=== PATIENT | female | born 1950 | race Caucasian/White ===

== ENCOUNTER 2023-09-09 09:25 | Inpatient (IN) | payer OTHER, BC ==
[2023-09-09 11:45] LABS: VENOUS BASE EXCESS -4.8 mmol/L (-2-2); VENOUS O2 SATURATION 51.1 % (70-80); VENOUS PCO2 39.7 mmHg (38-52); VENOUS PH 7.334 (7.310-7.410)
[2023-09-09 11:58] LABS: BASO % 0.3 % (0-2.0); EOS % 0.8 % (0-4.5); HEMATOCRIT 34.3 % (32.4-45.2); HEMOGLOBIN 10.6 GM/dL (10.7-15.3); LYMPH % 4.6 % (8-40); MCH 30.2 pg (25.7-33.7); MCHC 30.9 g/dl (32.0-36.0); MEAN CELL VOLUME 97.8 fl (80-96); MEAN PLT VOLUME 10.3 fl (7.5-11.1); MONO % 8.9 % (3.8-10.2); NEUT % 85.4 % (42.8-82.8); PLATELET COUNT 109 10^3/uL (134-434); RDW 19.4 % (11.6-15.6); WHITE BLOOD COUNT 18.3 K/mm3 (4.0-10.0)
[2023-09-09 12:05] LABS: CHLORIDE 103 mmol/L (98-107); SODIUM 133 mmol/L (136-145)
[2023-09-09 12:07] LABS: CALCIUM 9.7 mg/dL (8.5-10.1)
[2023-09-09 12:08] LABS: ALBUMIN 2.2 g/dl (3.4-5.0); ANION GAP 11 mmol/L (4-13); BLOOD UREA NITROGEN 41.8 mg/dL (7-18); CO2 20 mmol/L (21-32); GLUCOSE,RANDOM 222 mg/dL (74-106)
[2023-09-09 12:11] LABS: CREATININE 4.6 mg/dL (0.55-1.3); SGOT/AST 106 U/L (15-37); SGPT/ALT 96 U/L (13-61)
[2023-09-09 12:13] LABS: BILIRUBIN,TOTAL 0.9 mg/dL (0.2-1); TOT PROT 5.6 g/dl (6.4-8.2)
[2023-09-09 12:14] LABS: ALK PHOS 380 U/L (45-117)
[2023-09-09 12:18] LABS: N-TERMINAL BNP > 35000.0 pg/ml (5-125)
[2023-09-09] MEDS ORDERED: ALPRAZolam 0.25 MG TABLET PO PRN (16:33)
[2023-09-09] MEDS: INSULIN ASPART SLIDING SCALE (NOVOLOG) 1 VIAL SQ SCH (19:01)
[2023-09-09 19:46] LABS: CHLORIDE 103 mmol/L (98-107); SODIUM 131 mmol/L (136-145)
[2023-09-09 19:47] LABS: CALCIUM 9.1 mg/dL (8.5-10.1)
[2023-09-09 19:48] LABS: BLOOD UREA NITROGEN 44.8 mg/dL (7-18); CO2 20 mmol/L (21-32); GLUCOSE,RANDOM 320 mg/dL (74-106)
[2023-09-09 19:51] LABS: CREATININE 5.2 mg/dL (0.55-1.3)
[2023-09-09 19:53] LABS: ANION GAP 8 mmol/L (4-13); POTASSIUM 7.3 mmol/L (3.5-5.1)
[2023-09-09] MEDS: SEVELAMER CARBONATE 0.8 GM POWDER PACKET PO SCH (20:20)
[2023-09-09] MEDS ORDERED: ALPRAZolam 1 MG TABLET ONE (22:08)
[2023-09-09] MEDS ORDERED: ROSUVASTATIN CA 5 MG TABLET ONE (22:08)
[2023-09-09] MEDS ORDERED: CARVEDILOL 12.5 MG TABLET (FP) ONE (22:08)
[2023-09-09] MEDS ORDERED: APIXABAN 2.5 MG TABLET ONE (22:08)
[2023-09-09] MEDS: CARVEDILOL 12.5 MG TABLET (FP) PO SCH (22:19)
[2023-09-09] MEDS: ROSUVASTATIN CA 5 MG TABLET PO SCH (22:19)
[2023-09-09] MEDS: APIXABAN 2.5 MG TABLET PO SCH (22:19)
[2023-09-10] MEDS: glipiZIDE-XL 2.5 MG TAB.ER.24 PO SCH (06:14)
[2023-09-10] MEDS: INSULIN (LEVEMIR) 100 UNITS/ML UNITS SQ SCH (06:17)
[2023-09-10] MEDS: glipiZIDE-XL 5 MG TAB.ER.24 PO SCH (06:21)
[2023-09-10] MEDS ORDERED: PATIENT'S OWN MEDICATION (NON-FORMULARY) (Insulin Glargine,Hum.Rec.Anlog [Lantus] 100 UNIT SQ SCH (07:00)
[2023-09-10] MEDS ORDERED: SODIUM CHLORIDE 250 ML IV PRN ×3 (10:00→17:05)
[2023-09-10 10:18] LABS: HEMATOCRIT 29.9 % (32.4-45.2); HEMOGLOBIN 9.5 GM/dL (10.7-15.3); MCHC 31.9 g/dl (32.0-36.0); MEAN CELL VOLUME 97.2 fl (80-96); PLATELET COUNT 183 10^3/uL (134-434); RBC 3.07 M/mm3 (3.60-5.2); RDW 19.4 % (11.6-15.6)
[2023-09-10 10:39] LABS: POTASSIUM 4.6 mmol/L (3.5-5.1)
[2023-09-10 10:41] LABS: CALCIUM 9.5 mg/dL (8.5-10.1)
[2023-09-10 10:42] LABS: ALBUMIN 1.8 g/dl (3.4-5.0); BLOOD UREA NITROGEN 54.4 mg/dL (7-18)
[2023-09-10 10:45] LABS: CREATININE 5.5 mg/dL (0.55-1.3); PHOSPHOROUS 4.5 mg/dL (2.5-4.9)
[2023-09-10 10:46] LABS: BILIRUBIN,TOTAL 0.6 mg/dL (0.2-1); TOT PROT 4.8 g/dl (6.4-8.2)
[2023-09-10] MEDS: INSULIN ASPART SLIDING SCALE (NOVOLOG) 1 VIAL SQ SCH (11:30)
[2023-09-10 11:51] LABS: ANISOCYTOSIS 1+; MACROCYTOSIS 0
[2023-09-10] MEDS: ASPIRIN 81 MG CHEWABLE TABLETS PO SCH (13:17)
[2023-09-10] MEDS: traMADol HCL 50 MG TABLET PO ONE (13:20)
[2023-09-10] MEDS: CINACALCET HCL 30 MG TAB (FP) PO SCH (13:20)
[2023-09-10] MEDS: morphine CARPU-JECT 2 MG/1 ML DISP.SYRIN IVPUSH ONE (13:31)
[2023-09-10] MEDS ORDERED: ALPRAZolam 0.25 MG TABLET PO PRN (17:05)
[2023-09-10] MEDS: SEVELAMER CARBONATE 0.8 GM POWDER PACKET PO SCH (17:20)
[2023-09-10] MEDS: ALBUMIN HUMAN 25% 12.5 GM/50 ML VIAL IV SCH (18:36)
[2023-09-10] MEDS: ROSUVASTATIN CA 5 MG TABLET PO SCH (21:37)
[2023-09-10] MEDS: APIXABAN 2.5 MG TABLET PO SCH (21:37)
[2023-09-11] MEDS: INSULIN (LEVEMIR) 100 UNITS/ML UNITS SQ SCH (06:34)
[2023-09-11] MEDS: ALBUMIN HUMAN 25% 12.5 GM/50 ML VIAL IV SCH (09:30)
[2023-09-11 09:46] LABS: HEMATOCRIT 31.2 % (32.4-45.2); HEMOGLOBIN 9.7 GM/dL (10.7-15.3); MCH 30.5 pg (25.7-33.7); MCHC 31.2 g/dl (32.0-36.0); MEAN CELL VOLUME 97.8 fl (80-96); MEAN PLT VOLUME 10.2 fl (7.5-11.1); PLATELET COUNT 96 10^3/uL (134-434); RBC 3.19 M/mm3 (3.60-5.2); RDW 19.7 % (11.6-15.6)
[2023-09-11 10:04] LABS: POTASSIUM 4.9 mmol/L (3.5-5.1)
[2023-09-11 10:41] LABS: CALCIUM 8.6 mg/dL (8.5-10.1)
[2023-09-11 10:42] LABS: ALBUMIN 1.7 g/dl (3.4-5.0); BLOOD UREA NITROGEN 33.6 mg/dL (7-18); MAGNESIUM 2.1 mg/dL (1.8-2.4)
[2023-09-11 10:45] LABS: CREATININE 4.1 mg/dL (0.55-1.3); PHOSPHOROUS 4.2 mg/dL (2.5-4.9)
[2023-09-11 10:46] LABS: TOT PROT 4.5 g/dl (6.4-8.2)
[2023-09-11] MEDS: EPOETIN ALFA-EPBX 4,000 UNIT/ML VIAL IVPUSH ONE (11:38)
[2023-09-11] MEDS: CARVEDILOL 12.5 MG TABLET (FP) PO SCH (12:28)
[2023-09-11] MEDS: CINACALCET HCL 30 MG TAB (FP) PO SCH (12:28)
[2023-09-11] MEDS: ASPIRIN 81 MG CHEWABLE TABLETS PO SCH (12:28)
[2023-09-12 09:04] LABS: BASO % 0.9 % (0-2.0); EOS % 1.3 % (0-4.5); HEMATOCRIT 32.7 % (32.4-45.2); LYMPH % 5.2 % (8-40); MCH 30.1 pg (25.7-33.7); MCHC 30.6 g/dl (32.0-36.0); MEAN CELL VOLUME 98.2 fl (80-96); MEAN PLT VOLUME 10.4 fl (7.5-11.1); MONO % 9.4 % (3.8-10.2); NEUT % 83.2 % (42.8-82.8); PLATELET COUNT 98 10^3/uL (134-434); RBC 3.34 M/mm3 (3.60-5.2); WHITE BLOOD COUNT 19.7 K/mm3 (4.0-10.0)
[2023-09-12 09:27] LABS: POTASSIUM 4.7 mmol/L (3.5-5.1)
[2023-09-12 09:35] LABS: CALCIUM 9.4 mg/dL (8.5-10.1)
[2023-09-12 09:36] LABS: BLOOD UREA NITROGEN 28.4 mg/dL (7-18); MAGNESIUM 1.7 mg/dL (1.8-2.4)
[2023-09-12 09:38] LABS: PHOSPHOROUS 4.5 mg/dL (2.5-4.9)
[2023-09-12 09:40] LABS: CREATININE 3.5 mg/dL (0.55-1.3)
[2023-09-12] MEDS: MAGNESIUM SULF 50% (8.12 MEQ/2 ML-1 GM VIAL) IVPB ONE (12:26)
[2023-09-12] MEDS: DOCUSATE SODIUM 100 MG CAPSULE (FP) PO ONE (15:04)
[2023-09-12] MEDS: MAGNESIUM OXIDE 400 MG TABLET (FP) PO ONE (15:06)
[2023-09-13] MEDS: INSULIN (LEVEMIR) 100 UNITS/ML UNITS SQ SCH (06:17)
[2023-09-13 08:37] LABS: MAGNESIUM 2.5 mg/dL (1.8-2.4)
[2023-09-13 08:40] LABS: PHOSPHOROUS 4.6 mg/dL (2.5-4.9)
[2023-09-13 09:59] LABS: HEMATOCRIT 35.4 % (32.4-45.2); HEMOGLOBIN 10.9 GM/dL (10.7-15.3); MCH 30.2 pg (25.7-33.7); MCHC 30.6 g/dl (32.0-36.0); MEAN CELL VOLUME 98.6 fl (80-96); MEAN PLT VOLUME 9.8 fl (7.5-11.1); PLATELET COUNT 85 10^3/uL (134-434); RDW 20.6 % (11.6-15.6); WHITE BLOOD COUNT 12.3 K/mm3 (4.0-10.0)
[2023-09-13] MEDS: ALBUMIN HUMAN 25% 12.5 GM/50 ML VIAL IV SCH (10:33)
[2023-09-13] MEDS: EPOETIN ALFA-EPBX 4,000 UNIT/ML VIAL IVPUSH ONE (10:35)
[2023-09-13 10:41] LABS: POTASSIUM 3.9 mmol/L (3.5-5.1)
[2023-09-13 10:46] LABS: ALBUMIN 1.8 g/dl (3.4-5.0); CALCIUM 8.4 mg/dL (8.5-10.1)
[2023-09-13 10:47] LABS: BLOOD UREA NITROGEN 21.9 mg/dL (7-18)
[2023-09-13 10:49] LABS: CREATININE 2.7 mg/dL (0.55-1.3)
[2023-09-13 10:51] LABS: BILIRUBIN,TOTAL 0.7 mg/dL (0.2-1); TOT PROT 4.8 g/dl (6.4-8.2)
[2023-09-13] MEDS ORDERED: SODIUM CHLORIDE 250 ML IV PRN (12:00)
[2023-09-14 08:35] LABS: HEMATOCRIT 33.9 % (32.4-45.2); HEMOGLOBIN 10.6 GM/dL (10.7-15.3); MCH 30.5 pg (25.7-33.7); MCHC 31.2 g/dl (32.0-36.0); MEAN CELL VOLUME 97.6 fl (80-96); MEAN PLT VOLUME 9.7 fl (7.5-11.1); PLATELET COUNT 104 10^3/uL (134-434); RBC 3.48 M/mm3 (3.60-5.2); RDW 20.2 % (11.6-15.6); WHITE BLOOD COUNT 22.7 K/mm3 (4.0-10.0)
[2023-09-14 09:06] LABS: POTASSIUM 4.8 mmol/L (3.5-5.1)
[2023-09-14 09:11] LABS: BLOOD UREA NITROGEN 36.7 mg/dL (7-18); MAGNESIUM 2.4 mg/dL (1.8-2.4)
[2023-09-14 09:13] LABS: PHOSPHOROUS 3.2 mg/dL (2.5-4.9)
[2023-09-14 09:15] LABS: BILIRUBIN,TOTAL 1.1 mg/dL (0.2-1); TOT PROT 5.5 g/dl (6.4-8.2)
[2023-09-14 09:25] LABS: ALBUMIN 2.5 g/dl (3.4-5.0); ANISOCYTOSIS 0; CALCIUM 9.8 mg/dL (8.5-10.1); HELMET CELLS 0; HOWELL-JOLLY BODIES 0; MACROCYTOSIS 0; OVALOCYTE 0; ROULEAU 0; SICKELED CELLS 0; TARGET CELLS 0; TEAR DROP CELLS 0; TOXIC GRANULATION 0
[2023-09-14] MEDS ORDERED: SODIUM CHLORIDE 250 ML IV PRN (20:55)
[2023-09-14] MEDS: MELATONIN 1 MG TABLET PO SCH (21:18)
[2023-09-14] MEDS ORDERED: PIPERACILLIN/TAZOB 3.375 GM 3.375 GM in DEXTROSE 5%-WATER - 50 ML IVPB SCH (22:00)
[2023-09-14] MEDS: PIPERACILLIN/TAZOB 3.375 GM 3.375 GM in DEXTROSE 5%-WATER - 50 ML IVPB SCH (22:36)
[2023-09-15] MEDS: LORazepam 0.5 MG TABLET PO SCH (22:43)
[2023-09-16 08:41] LABS: HEMATOCRIT 34.5 % (32.4-45.2); MCH 30.8 pg (25.7-33.7); MCHC 31.9 g/dl (32.0-36.0); MEAN CELL VOLUME 96.7 fl (80-96); MEAN PLT VOLUME 10.7 fl (7.5-11.1); PLATELET COUNT 82 10^3/uL (134-434); RBC 3.57 M/mm3 (3.60-5.2); RDW 20.3 % (11.6-15.6); WHITE BLOOD COUNT 22.9 K/mm3 (4.0-10.0)
[2023-09-16 08:51] LABS: POTASSIUM 4.8 mmol/L (3.5-5.1)
[2023-09-16 08:59] LABS: ALBUMIN 2.3 g/dl (3.4-5.0); BLOOD UREA NITROGEN 32.2 mg/dL (7-18); MAGNESIUM 2.2 mg/dL (1.8-2.4)
[2023-09-16 09:00] LABS: INR 3.18 (0.83-1.09); PROTHROMBIN TIME (PATIENT) 36.5 SEC (9.7-13.0)
[2023-09-16 09:02] LABS: CREATININE 3.7 mg/dL (0.55-1.3); PHOSPHOROUS 3.8 mg/dL (2.5-4.9)
[2023-09-16 09:03] LABS: ACTIVATED PTT 31.3 SECONDS (25.2-36.5)
[2023-09-16 09:04] LABS: BILIRUBIN,TOTAL 1.6 mg/dL (0.2-1); TOT PROT 4.9 g/dl (6.4-8.2)
[2023-09-16] MEDS: PANTOPRAZOLE 20 MG TABLET PO SCH (09:31)
[2023-09-16 11:00] LABS: ANISOCYTOSIS 1+; MACROCYTOSIS 2+; OVALOCYTE 1+
[2023-09-16] MEDS ORDERED: SODIUM CHLORIDE 250 ML IV PRN (15:03)
[2023-09-16 16:16] VITALS: BMI 24.0
[2023-09-16] MEDS ORDERED: LORazepam 0.5 MG TABLET PO SCH (22:26)
[2023-09-17] MEDS ORDERED: LORazepam 0.5 MG TABLET PO PRN (09:30)
[2023-09-17] MEDS ORDERED: MELATONIN 1 MG TABLET PO PRN (09:31)
[2023-09-17] MEDS: ALBUMIN HUMAN 25% 12.5 GM/50 ML VIAL IV SCH (13:30)
[2023-09-17 14:21] LABS: HEMATOCRIT 36.6 % (32.4-45.2); HEMOGLOBIN 11.6 GM/dL (10.7-15.3); MCH 30.9 pg (25.7-33.7); MCHC 31.6 g/dl (32.0-36.0); MEAN CELL VOLUME 97.7 fl (80-96); MEAN PLT VOLUME 10.8 fl (7.5-11.1); PLATELET COUNT 71 10^3/uL (134-434); RBC 3.75 M/mm3 (3.60-5.2); RDW 20.5 % (11.6-15.6); WHITE BLOOD COUNT 25.5 K/mm3 (4.0-10.0)
[2023-09-17 14:28] LABS: POTASSIUM 5.8 mmol/L (3.5-5.1)
[2023-09-17 14:30] LABS: ALBUMIN 2.1 g/dl (3.4-5.0); CALCIUM 8.4 mg/dL (8.5-10.1)
[2023-09-17 14:31] LABS: MAGNESIUM 2.3 mg/dL (1.8-2.4)
[2023-09-17 14:34] LABS: CREATININE 4.8 mg/dL (0.55-1.3); PHOSPHOROUS 5.8 mg/dL (2.5-4.9)
[2023-09-17 14:36] LABS: BILIRUBIN,TOTAL 1.4 mg/dL (0.2-1)
[2023-09-17 15:04] LABS: ANISOCYTOSIS 1+; MACROCYTOSIS 1+
[2023-09-17 15:36] LABS: POTASSIUM 3.6 mmol/L (3.5-5.1)
[2023-09-17 15:38] LABS: CALCIUM 8.1 mg/dL (8.5-10.1)
[2023-09-17 15:42] LABS: CREATININE 2.2 mg/dL (0.55-1.3)
[2023-09-17 15:45] LABS: BLOOD UREA NITROGEN 22.6 mg/dL (7-18); LACTIC ACID 2.3 mmol/L (0.4-2.0)
[2023-09-17 18:31] LABS: ALLENS TEST POSITIVE; ARTERIAL BLD GAS O2 SATURATION 94.4 % (95-98); ARTERIAL BLOOD GAS BASE EXCESS 0.8 mmol/L (-2-2); ARTERIAL BLOOD GAS PO2 67.9 mmHg (80-100); ARTERIAL BLOOD GAS pH 7.445 (7.350-7.450)
[2023-09-18 02:12] VITALS: PULSE 66
[2023-09-18] MEDS ORDERED: SODIUM CHLORIDE 250 ML IV PRN (12:22)
[2023-09-18 13:44] VITALS: BP 113/48; RESP 16; TEMP 98.2
== END 2023-09-18 11:50 | disposition expired | DRG 312 ==
LOC: JER 09:25 → UNDOADMOB 10:36 → INTOOBSV 10:36 → JERBED 10:36 → J4S 09-10 03:27 → OBSVTOIN 09-11 17:57
PROVIDERS: ADMIT Internal Medicine; ATTEND Internal Medicine
PROC: 5A1D70Z Performance of Urinary Filtration, Intermittent, Less than 6 Hours Per Day (ICD-10-PCS; principal; 2023-09-10)
PROC: 5A1D70Z Performance of Urinary Filtration, Intermittent, Less than 6 Hours Per Day (ICD-10-PCS; 2023-09-11)
PROC: 5A1D70Z Performance of Urinary Filtration, Intermittent, Less than 6 Hours Per Day (ICD-10-PCS; 2023-09-13)
PROC: 5A1D70Z Performance of Urinary Filtration, Intermittent, Less than 6 Hours Per Day (ICD-10-PCS; 2023-09-15)
PROC: 5A1D70Z Performance of Urinary Filtration, Intermittent, Less than 6 Hours Per Day (ICD-10-PCS; 2023-09-17)
DX: I95.3 Hypotension of hemodialysis (principal); N18.6 End stage renal disease; I63.9 Cerebral infarction, unspecified; G93.41 Metabolic encephalopathy; I13.2 Hypertensive heart and chronic kidney disease with heart failure and with stage 5 chronic kidney disease, or end stage renal disease; I50.22 Chronic systolic (congestive) heart failure; I24.89 Other forms of acute ischemic heart disease; C56.9 Malignant neoplasm of unspecified ovary; I42.8 Other cardiomyopathies; C79.9 Secondary malignant neoplasm of unspecified site; C78.7 Secondary malignant neoplasm of liver and intrahepatic bile duct; C78.00 Secondary malignant neoplasm of unspecified lung; C78.89 Secondary malignant neoplasm of other digestive organs; R18.8 Other ascites; J90 Pleural effusion, not elsewhere classified; D72.829 Elevated white blood cell count, unspecified; E11.22 Type 2 diabetes mellitus with diabetic chronic kidney disease; Z99.2 Dependence on renal dialysis; E87.70 Fluid overload, unspecified; I25.10 Atherosclerotic heart disease of native coronary artery without angina pectoris; K80.20 Calculus of gallbladder without cholecystitis without obstruction; I48.91 Unspecified atrial fibrillation; D69.6 Thrombocytopenia, unspecified; K74.60 Unspecified cirrhosis of liver
CPT/HCPCS: 36415; 36600; 70450-TC; 71045-TC-FY; 72146-TC; 74178-TC; 76705-TC; 76830-TC; 80048; 80053; 82105; 82140; 82248; 82378; 82550; 82728; 82803; 82962; 82977; 83540; 83550; 83605; 83735; 83880; 84100; 84466; 84484; 85025; 85027; 85610; 85730; 86301; 86704; 86803; 87040; 87340; 87517; 93005; 93010; 93306-TC; 97161-GP; 99285-25; G0378; P9047; Q5106; Q9967